=== PATIENT | female | born 1990 | race Caucasian/White ===

== ENCOUNTER 2022-08-14 22:12 | Emergency (ER) | payer OTHER ==
[~2022-08-14] VITALS: Ht 162.6 cm; Wt 59.0 kg
[2022-08-14 22:25] VITALS: BP 131/71
[2022-08-14] MEDS ORDERED: IBUPROFEN 600 MG TABLET ONE (23:23)
[2022-08-14] MEDS ORDERED: IBUPROFEN 600 MG TABLET PO ONE (23:30)
[2022-08-15] MEDS ORDERED: IBUP-1955 PO (00:47)
--- NOTE | 2022-08-15 00:55 | NUR ---
Patient discharged to home in stable condition. Written and verbal after care instructions given. Patient verbalizes understanding of instruction.
== END 2022-08-15 00:56 | disposition home or self-care (01) ==
LOC: ER 22:15
DX: S60.211A Contusion of right wrist, initial encounter (principal); S70.01XA Contusion of right hip, initial encounter; F17.200 Nicotine dependence, unspecified, uncomplicated; V29.498A Other motorcycle driver injured in collision with other motor vehicles in traffic accident, initial encounter; Y93.89 Activity, other specified; Y92.89 Other specified places as the place of occurrence of the external cause; Y99.8 Other external cause status
CPT/HCPCS: 73110; 73502; 84703-TC